=== PATIENT | female | born 1990 | race Caucasian/White ===

== ENCOUNTER 2018-04-01 11:44 | Emergency (ER) | payer BC, MEDICAID ==
[2018-04-01 11:49] VITALS: Ht 170.2 cm
[2018-04-01 17:42] VITALS: BP 118/74
== END 2018-04-01 17:42 | disposition home or self-care (01) ==
LOC: ED 11:44
DX: N83.209 Unspecified ovarian cyst, unspecified side (principal)
CPT/HCPCS: 87491; 87591